=== PATIENT | male | born 1935 | race Caucasian/White ===

== ENCOUNTER 2017-09-09 00:25 | Emergency (ER) | payer OTHER, MEDICARE ==
[~2017-09-09] VITALS: Ht 177.8 cm; Wt 74.8 kg
[~2017-09-09 00:25] MED LIST: ASA81BEC PO; ASPIRIN325 PO; CALCIUM 600 +1 EAC1 PO; CENTRUM SILVER1 EAC2 PO; CO Q-10100 M1 PO; FIBER TABS625 MG PO; FLOMAX0.4 MG PO; HYDROXYCHLOROQ200 M1 PO; L-LYSINE500 M1 PO; LEVAQUIN 500 M500 MG PO; LIPITOR40 MG PO; NORCO 5-325 TA1 EACH PO; STOOL SOFTENER100 MG PO; TOPROL XL25 MG PO
[2017-09-09] MEDS ORDERED: LEVOTHYROXINE125 MCG PO (00:34)
[2017-09-09] MEDS ORDERED: ARICEPT10 MG PO (00:35)
[2017-09-09] MEDS ORDERED: SENNA-DOCUSATE1 EACH PO (01:25)
[2017-09-09] MEDS ORDERED: CITRATE OF MAG296 M1 PO (01:25)
[2017-09-09 02:49] VITALS: BP 141/61
== END 2017-09-09 02:50 | disposition home or self-care (01) ==
LOC: ER 00:25
DX: K59.00 Constipation, unspecified (principal); K21.9 Gastro-esophageal reflux disease without esophagitis; M19.90 Unspecified osteoarthritis, unspecified site; I10 Essential (primary) hypertension; Z96.643 Presence of artificial hip joint, bilateral; Z88.2 Allergy status to sulfonamides

== ENCOUNTER → 2017-09-12 | Outpatient (CLI) | payer OTHER, MEDICARE ==
[~2017-09-12] MED LIST changes: +ARICEPT10 MG PO; +CITRATE OF MAG296 M1 PO; +LEVOTHYROXINE125 MCG PO; +SENNA-DOCUSATE1 EACH PO
== END ==
LOC: RAD 16:05
DX: R10.9 Unspecified abdominal pain (principal)

== ENCOUNTER → 2019-09-21 | Outpatient (CLI) | payer OTHER, MEDICARE | LOC: SJCVC 13:24 | DX: I25.10 Atherosclerotic heart disease of native coronary artery without angina pectoris (principal); I65.23 Occlusion and stenosis of bilateral carotid arteries; E78.5 Hyperlipidemia, unspecified; C73 Malignant neoplasm of thyroid gland; Z95.1 Presence of aortocoronary bypass graft; Z79.82 Long term (current) use of aspirin; Z79.899 Other long term (current) drug therapy ==

== ENCOUNTER → 2020-03-23 | Outpatient (CLI) | payer OTHER, MEDICARE | LOC: SJCVC 13:49 | PROVIDERS: ATTEND Internal Medicine | DX: I25.10 Atherosclerotic heart disease of native coronary artery without angina pectoris (principal); I49.49 Other premature depolarization; I65.23 Occlusion and stenosis of bilateral carotid arteries; E78.5 Hyperlipidemia, unspecified; C73 Malignant neoplasm of thyroid gland; Z95.1 Presence of aortocoronary bypass graft; Z79.899 Other long term (current) drug therapy; Z87.891 Personal history of nicotine dependence ==

== ENCOUNTER → 2020-09-21 | Outpatient (CLI) | payer OTHER, MEDICARE | LOC: SJCVCIMAG 10:51 | PROVIDERS: ATTEND Internal Medicine | DX: I07.1 Rheumatic tricuspid insufficiency (principal); I65.23 Occlusion and stenosis of bilateral carotid arteries; E78.5 Hyperlipidemia, unspecified; R94.31 Abnormal electrocardiogram [ECG] [EKG]; I25.810 Atherosclerosis of coronary artery bypass graft(s) without angina pectoris; C73 Malignant neoplasm of thyroid gland; Z95.1 Presence of aortocoronary bypass graft; Z79.82 Long term (current) use of aspirin; Z79.899 Other long term (current) drug therapy; Z82.49 Family history of ischemic heart disease and other diseases of the circulatory system; Z87.891 Personal history of nicotine dependence ==